=== PATIENT | male | born 1985 | race African-American/Black ===

== ENCOUNTER 2022-06-07 20:03 | Emergency (ER) | payer OTHER ==
[~2022-06-07] VITALS: Ht 175.3 cm; Wt 72.6 kg
[2022-06-07 20:07] VITALS: BP 158/110
--- NOTE | 2022-06-07 20:07 | NUR ---
PT TO BED #3
[2022-06-07] MEDS ORDERED: ONDANSETRON 4 MG/2 ML VIAL IVP ONE (20:15)
[2022-06-07] MEDS ORDERED: MORPHINE SULFATE 4 MG/ML SYR IVP ONE ×3 (20:15→22:05)
[2022-06-07] MEDS ORDERED: NACL 0.9% 1,000 ML IV ONE (20:15)
--- NOTE | 2022-06-07 20:21 | NUR ---
PT HAS ABD PAIN, THE PAIN REALTED TO MUSCLE STRAINED AFTER VOMITNG AND WITH EPSISODE OF NAUSEA AND VOMITTING ALL DAY. AWAKE AND ALERT X 4, SEEMS LETHARGIC. AMBUALTORY
[2022-06-07 20:33] LABS: BASOPHILS # (AUTO) 0.1 K/uL (0.00-0.22); BASOPHILS % (AUTO) 0.4 % (0.0-2.0); HEMOGLOBIN 14.9 g/dL (12.0-18.0); LYMPHOCYTES # (AUTO) 1.3 K/uL (2.0-11.5); MEAN CORPUSCULAR HEMOGLOBIN 29 pg (27-31); MEAN CORPUSCULAR HGB CONC 32 g/dL (33-37); MEAN CORPUSCULAR VOLUME 90.5 fL (80-94); MONOCYTES # (AUTO) 0.9 K/uL (0.8-1.0); NEUTROPHILS # (AUTO) 18.9 K/uL (1.8-7.7); NEUTROPHILS % (AUTO) 89.6 % (42.2-75.2); PLATELET COUNT (AUTO) 288 K/uL (140-450); RED CELL DISTRIBUTION WIDTH 13.1 % (11.6-13.7); WHITE BLOOD COUNT (AUTO) 21.1 K/uL (4.8-10.8)
[2022-06-07 20:49] LABS: ANION GAP 25.7 (8-16); CREATININE 1.2 mg/dL (0.6-1.3); POTASSIUM 4.7 mmol/L (3.5-5.1)
[2022-06-07 20:54] LABS: ALBUMIN 5.2 g/dL (3.4-5.0); TOTAL BILIRUBIN 0.6 mg/dL (0.0-1.0)
[2022-06-07 21:21] LABS: APPEARANCE,URINE CLEAR (CLEAR); BILIRUBIN,URINE NEGATIVE (NEGATIVE); BLOOD, URINE SMALL (NEGATIVE); COLOR,URINE STRAW (YELLOW); LEUKOCYTE ESTERASE ,URINE NEGATIVE (NEGATIVE); NITRITE, URINE NEGATIVE (NEGATIVE); PH,URINE 5.5 (5.0-9.0); UGLUCOSE NEGATIVE (NEGATIVE)
[2022-06-07 21:37] LABS: RBC,URINE 0-5 /HPF (0-5); WBC,URINE NONE SEEN /HPF (0-5)
[2022-06-07] MEDS ORDERED: MORPHINE SULFATE 4 MG/ML SYR ONE (23:56)
[2022-06-08] MEDS ORDERED: AMOX1TAB8 PO (00:54)
[2022-06-08] MEDS ORDERED: ONDA-188 PO (00:54)
[2022-06-08] MEDS ORDERED: MAG355OR2 PO (00:54)
[2022-06-08] MEDS ORDERED: IBUP-1842 PO (00:54)
[2022-06-08] MEDS ORDERED: FAMO-90 PO (00:54)
[2022-06-08] MEDS ORDERED: diphenhydrAMINE 50 MG/ML VIAL IVP ONE (00:55)
[2022-06-08] MEDS ORDERED: METOCLOPRAMIDE 10 MG/2 ML INJ VIAL IVP ONE (00:55)
[2022-06-08 01:53] VITALS: BP 163/95
--- NOTE | 2022-06-08 01:54 | NUR ---
Patient discharged with v/s stable. Written and verbal after care instructions given and explained. Patient verbalized understanding. Ambulatory with steady gait. All questions addressed prior to discharge. Advised to follow up with PMD. PT LEFT WITH HS BELONGINGS
[2022-06-09] MEDS ORDERED: AMOX1TAB8 PO (12:40)
[2022-06-09] MEDS ORDERED: ONDA-188 PO (12:40)
[2022-06-09] MEDS ORDERED: FAMO-90 PO (12:40)
[2022-06-09] MEDS ORDERED: MAG355OR2 PO (12:40)
[2022-06-09] MEDS ORDERED: IBUP-1842 PO (12:40)
--- NOTE | 2022-06-10 16:22 | NUR ---
LATE ENTRY -- CONFIRMED WITH NURSE, NS INFUSION COMPLETED AT 3636 06/07/22
== END 2022-06-08 01:53 | disposition home or self-care (01) ==
LOC: MED 20:03
DX: R10.31 Right lower quadrant pain (principal); R11.2 Nausea with vomiting, unspecified; Z79.899 Other long term (current) drug therapy; Z79.1 Long term (current) use of non-steroidal anti-inflammatories (NSAID); Z79.2 Long term (current) use of antibiotics
CPT/HCPCS: 36415; 74177; 80053; 81001; 82150; 83690; 85025; 96361; 96374; 96375; 96376; 99285; J1200; J2270; J2405; J2765; J7030; Q9967